=== PATIENT | male | born 1960 ===

== ENCOUNTER 2025-08-22 01:24 | Outpatient (CLI) | payer BC, SELFPAY ==
[2025-08-22 11:53] LABS: Abs Immature Grans 0.03 10^3/uL (0.0-0.06); HCT 40.9 % (40.0-50.0); HGB 13.7 g/dL (13.5-17.5); Immature Grans % 0.4 %; MCH 31.6 pg (27.0-33.0); MCHC 33.5 % (32.0-36.0); MCV 94 fL (80-95); MPV 8.9 fL (8.0-11.0); Platelet Count 226 10^3/uL (130-400); RBC 4.34 10^6/uL (4.36-5.78); RDW 12.6 % (11.8-14.1); RDW-SD 43.8 fL; WBC 7.81 10^3/uL (4.4-10.8)
[2025-08-22 12:13] LABS: ALT 17 U/L (16-63); AST 14 U/L (15-37); Albumin 3.8 g/dL (3.4-5.0); Alkaline Phosphatase 86 U/L (46-116); Anion Gap 10.4 mmol/L (3-11); BUN 24 mg/dL (7-18); Bilirubin, Total 0.6 mg/dL (0.2-1.0); CO2 24.6 mmol/L (21.0-32.0); Calcium 9.3 mg/dL (8.5-10.1); Chloride 102 mmol/L (98-107); Glucose 179 mg/dL (74-106); Magnesium 2.0 mg/dL (1.8-2.4); Potassium 4.2 mmol/L (3.5-5.1); Sodium 137 mmol/L (136-145); Total Protein 7.2 g/dL (6.4-8.2)
== END 2025-08-22 01:25 | disposition home or self-care (01) ==
LOC: LBO 01:24
PROVIDERS: Visit Provider Internal Medicine Medical Oncology
DX: C16.0 Malignant neoplasm of cardia (principal)
CPT/HCPCS: 36415; 80053; 83735; 85025

== ENCOUNTER 2025-08-28 03:33 | Outpatient (CLI) | payer BC, SELFPAY ==
[2025-08-28 10:02] LABS: Abs Immature Grans 0.02 10^3/uL (0.0-0.06); HCT 39.8 % (40.0-50.0); HGB 13.5 g/dL (13.5-17.5); Immature Grans % 0.3 %; MCH 32.1 pg (27.0-33.0); MCHC 33.9 % (32.0-36.0); MCV 95 fL (80-95); MPV 8.9 fL (8.0-11.0); Platelet Count 210 10^3/uL (130-400); RBC 4.20 10^6/uL (4.36-5.78); RDW 12.6 % (11.8-14.1); RDW-SD 43.7 fL; WBC 6.07 10^3/uL (4.4-10.8)
[2025-08-28 10:27] LABS: ALT 19 U/L (16-63); AST 13 U/L (15-37); Albumin 3.5 g/dL (3.4-5.0); Alkaline Phosphatase 82 U/L (46-116); Anion Gap 8.3 mmol/L (3-11); BUN 24 mg/dL (7-18); Bilirubin, Total 0.5 mg/dL (0.2-1.0); CO2 26.7 mmol/L (21.0-32.0); Calcium 8.9 mg/dL (8.5-10.1); Chloride 106 mmol/L (98-107); Glucose 154 mg/dL (74-106); Magnesium 1.9 mg/dL (1.8-2.4); Potassium 4.8 mmol/L (3.5-5.1); Sodium 141 mmol/L (136-145); Total Protein 6.8 g/dL (6.4-8.2)
== END 2025-08-28 03:34 | disposition home or self-care (01) ==
PROVIDERS: Visit Provider Internal Medicine Medical Oncology
DX: C16.0 Malignant neoplasm of cardia (principal)
CPT/HCPCS: 36415; 80053; 83735; 85025

== ENCOUNTER 2025-09-05 03:23 | Outpatient (CLI) | payer BC, SELFPAY ==
[2025-09-05 10:15] LABS: Abs Immature Grans 0.03 10^3/uL (0.0-0.06); HCT 37.2 % (40.0-50.0); HGB 12.6 g/dL (13.5-17.5); Immature Grans % 0.5 %; MCH 31.7 pg (27.0-33.0); MCHC 33.9 % (32.0-36.0); MCV 94 fL (80-95); MPV 9.3 fL (8.0-11.0); Platelet Count 215 10^3/uL (130-400); RBC 3.98 10^6/uL (4.36-5.78); RDW 12.1 % (11.8-14.1); RDW-SD 41.2 fL; WBC 5.89 10^3/uL (4.4-10.8)
[2025-09-05 10:26] LABS: Magnesium 1.9 mg/dL (1.6-2.6)
[2025-09-05 10:28] LABS: ALT 14 U/L (10-49); AST 17 U/L (<34); Albumin 4.2 g/dL (3.4-5.0); Alkaline Phosphatase 72 U/L (46-116); Anion Gap 7.9 mmol/L (3-11); BUN 19 mg/dL (9-23); Bilirubin, Total 0.40 mg/dL (0.2-1.2); CO2 26.1 mmol/L (20.0-31.0); Calcium 9.1 mg/dL (8.3-10.6); Chloride 108 mmol/L (98-107); Glucose 100 mg/dL (74-106); Potassium 4.5 mmol/L (3.5-5.1); Sodium 142 mmol/L (136-145); Total Protein 6.8 g/dL (5.7-8.2)
== END 2025-09-05 03:24 | disposition home or self-care (01) ==
LOC: LBO 03:23
PROVIDERS: Visit Provider Internal Medicine Medical Oncology
DX: C16.0 Malignant neoplasm of cardia (principal)
CPT/HCPCS: 36415; 80053; 83735; 85025

== ENCOUNTER 2025-09-11 03:57 | Outpatient (CLI) | payer BC, SELFPAY ==
[2025-09-11 10:10] LABS: Abs Immature Grans 0.04 10^3/uL (0.0-0.06); HCT 38.4 % (40.0-50.0); HGB 13.2 g/dL (13.5-17.5); Immature Grans % 0.9 %; MCH 32.6 pg (27.0-33.0); MCHC 34.4 % (32.0-36.0); MCV 95 fL (80-95); MPV 9.0 fL (8.0-11.0); Platelet Count 210 10^3/uL (130-400); RBC 4.05 10^6/uL (4.36-5.78); RDW 12.0 % (11.8-14.1); RDW-SD 41.8 fL; WBC 4.59 10^3/uL (4.4-10.8)
[2025-09-11 10:34] LABS: Magnesium 1.7 mg/dL (1.6-2.6)
[2025-09-11 10:36] LABS: ALT 12 U/L (10-49); AST 14 U/L (<34); Albumin 4.1 g/dL (3.4-5.0); Alkaline Phosphatase 69 U/L (46-116); Anion Gap 7.4 mmol/L (3-11); BUN 20 mg/dL (9-23); Bilirubin, Total 0.50 mg/dL (0.2-1.2); CO2 24.6 mmol/L (20.0-31.0); Calcium 9.0 mg/dL (8.3-10.6); Chloride 108 mmol/L (98-107); Glucose 181 mg/dL (74-106); Potassium 4.4 mmol/L (3.5-5.1); Sodium 140 mmol/L (136-145); Total Protein 6.6 g/dL (5.7-8.2)
== END 2025-09-11 03:58 | disposition home or self-care (01) ==
LOC: LBO 03:57
PROVIDERS: Visit Provider Internal Medicine Medical Oncology
DX: C16.0 Malignant neoplasm of cardia (principal)
CPT/HCPCS: 36415; 80053; 83735; 85025

== ENCOUNTER 2025-09-18 04:11 | Outpatient (CLI) | payer BC, SELFPAY ==
[2025-09-18 10:22] LABS: Abs Immature Grans 0.03 10^3/uL (0.0-0.06); HCT 38.2 % (40.0-50.0); HGB 13.0 g/dL (13.5-17.5); Immature Grans % 0.7 %; MCH 31.7 pg (27.0-33.0); MCHC 34.0 % (32.0-36.0); MCV 93 fL (80-95); MPV 8.8 fL (8.0-11.0); Platelet Count 153 10^3/uL (130-400); RBC 4.10 10^6/uL (4.36-5.78); RDW 12.1 % (11.8-14.1); RDW-SD 41.0 fL; WBC 4.21 10^3/uL (4.4-10.8)
[2025-09-18 10:42] LABS: Magnesium 1.9 mg/dL (1.6-2.6)
[2025-09-18 10:43] LABS: ALT 14 U/L (10-49); AST 17 U/L (<34); Albumin 4.2 g/dL (3.2-5.0); Alkaline Phosphatase 73 U/L (46-116); Anion Gap 6 mmol/L (3-11); BUN 15 mg/dL (9-23); Bilirubin, Total 0.30 mg/dL (0.2-1.2); CO2 26.0 mmol/L (20.0-31.0); Calcium 9.4 mg/dL (8.3-10.6); Chloride 109 mmol/L (98-107); Glucose 124 mg/dL (74-106); Potassium 4.7 mmol/L (3.5-5.1); Sodium 141 mmol/L (136-145); Total Protein 6.9 g/dL (5.7-8.2)
== END 2025-09-18 04:12 | disposition home or self-care (01) ==
LOC: LBO 04:12
PROVIDERS: Visit Provider Internal Medicine Medical Oncology
DX: C16.0 Malignant neoplasm of cardia (principal)
CPT/HCPCS: 36415; 80053; 83735; 85025